=== PATIENT | male | born 1960 | race Caucasian/White ===

== ENCOUNTER 2018-12-26 09:52 | Emergency (ER) | payer BC ==
[~2018-12-26] VITALS: Ht 177.8 cm; Wt 79.4 kg
--- NOTE | 2018-12-26 10:30 | NUR ---
Dr. Olvera here to see pt for MSE.
--- NOTE | 2018-12-26 10:45 | NUR ---
Patient discharged to home in stable conditon. Written and verbal after care instructions given. Patient verbalizes understanding of instructions.
== END 2018-12-26 10:45 | disposition home or self-care (01) ==
LOC: ER 09:52
DX: S20.212A Contusion of left front wall of thorax, initial encounter (principal); S00.31XA Abrasion of nose, initial encounter; S80.212A Abrasion, left knee, initial encounter; V49.9XXA Car occupant (driver) (passenger) injured in unspecified traffic accident, initial encounter; Y93.89 Activity, other specified; Y92.89 Other specified places as the place of occurrence of the external cause; Y99.8 Other external cause status
CPT/HCPCS: A4663